=== PATIENT | female | born 1925 | race Caucasian/White ===

== ENCOUNTER 2016-07-02 21:29 | Emergency (ER) | payer MEDICARE ==
[~2016-07-02 21:29] MED LIST: ASA5GR PO; ASAB PO; CELEBREX2 PO; CYANO1000T PO; DID NOT BRING LIST; FISH-EPA1000 MG PO; FLEX PO; HALF81 PO; LIPITOR10 PO; LOP25 PO; MCZ125 PO; NEUR300 PO; PERI-COLACE1 TAB PO; PLAVIX PO; PR25 PO; PRILO PO; PRIN10 PO; PROTONIX PO; RESTASIS OPH; SYN1 PO; SYN88 PO; TAMOXIFEN CITRATE PO; TEARS NATURA OPH; V2 PO; VITAMIN D31000 UNIT PO; ZANTAC 150 PO
== END 2016-07-02 21:45 | disposition home or self-care (01) ==
LOC: ER 21:29
DX: K13.0 Diseases of lips (principal); I10 Essential (primary) hypertension; Z79.82 Long term (current) use of aspirin; Z79.899 Other long term (current) drug therapy
CPT/HCPCS: 99282; A9270-GY